=== PATIENT | male | born 1970 | race Caucasian/White ===

== ENCOUNTER → 2020-08-30 13:21 | Outpatient (BNVA) | payer OTHER, SELFPAY | PROVIDERS: PCP Physician Assistant; Referring Provider Physician Assistant; Visit Provider Nurse Practitioner | DX: R13.12 Dysphagia, oropharyngeal phase (principal); J30.2 Other seasonal allergic rhinitis; K21.9 Gastro-esophageal reflux disease without esophagitis | CPT/HCPCS: 99212 ==

== ENCOUNTER → 2020-12-04 08:38 | Outpatient (BNVA) | payer OTHER, SELFPAY | PROVIDERS: PCP Physician Assistant; Visit Provider Nurse Practitioner ==

== ENCOUNTER 2020-12-31 11:47 | Outpatient (REF) | payer OTHER, SELFPAY ==
--- NOTE | ~2020-12-31 | XR_ITS ---
EXAMINATION: XR CHEST CLINICAL INFORMATION: Cough COMPARISON: Chest radiographs 07/15/2019 TECHNIQUE: 2 views of the chest were obtained. FINDINGS: The lungs are clear. There is no airspace consolidation or groundglass opacity. The heart is normal in size. The vascularity is normal. The costophrenic sulci are clear. There is tapering right cardiophrenic angle with some mild convexity, more conspicuous on current exam. Most likely differential considerations include areolar tissue, pericardial cyst, or Morgagni hernia. The hilar contours are normal. Bony structures again show mild pectus excavatum and degenerative changes thoracic spine. XR/XR chest 2V IMPRESSION: 1. No airspace consolidation or groundglass opacity or effusion. 2. Convexity right cardiophrenic angle. Most common differential considerations include areolar tissue, pericardial cyst, or Morgagni hernia.
== END 2020-12-31 11:48 | disposition home or self-care (01) ==
LOC: HO.LNP 11:47
PROVIDERS: Visit Provider Physician Assistant
DX: R19.8 Other specified symptoms and signs involving the digestive system and abdomen (principal)
CPT/HCPCS: 71046; 87071; 87205

== ENCOUNTER 2021-01-01 08:22 | Outpatient (REF) | payer BC, OTHER, SELFPAY ==
[2021-01-01 09:48] LABS: Hematocrit 46.1 % (42-52); Hemoglobin 15.3 g/dl (14.0-18.0); Mean Corpuscular HGB Conc 33.2 g/dl (31.0-36.0); Mean Corpuscular Hemoglobin 29.7 pg (27.0-33.0); Mean Corpuscular Volume 89.3 fL (80-98); Mean Platelet Volume 11.6 fL (9.4-12.4); Platelet Count 198 X10*3/uL (160-400); Red Blood Count 5.16 X10*6/uL (4.60-5.80); Red Cell Distribution Width 12.9 % (11.0-16.0); White Blood Count 6.9 X10*3/uL (4.8-10.8)
[2021-01-01 10:13] LABS: Alanine Aminotransferase 11 U/L (0-40); Albumin Level 4.3 g/dL (3.5-5.0); Alkaline Phosphatase 65 U/L (39-117); Anion Gap 11 (12-20); Aspartate Amino Transferase 15 U/L (5-37); Bilirubin Total 1.2 mg/dL (0.0-1.0); Blood Urea Nitrogen 18 mg/dL (9-16); Carbon Dioxide 30 mmol/L (22-29); Chloride 103 mmol/L (96-108); Cholesterol 193 mg/dL; Estimated Glomerular Filt Rate > 60; Glucose Fasting 99 mg/dL (60-99); HDL Cholesterol 65 mg/dL; LDL Cholesterol Calculated 113 mg/dl; Potassium 4.5 mmol/L (3.3-5.1); Sodium 139 mmol/L (135-145); Total Protein 7.2 g/dL (6.5-8.0); Triglycerides 78 mg/dL
[2021-01-01 10:35] LABS: TSH reflex Free T4 2.76 uIU/mL (0.32-4.0)
[2021-01-02 10:27] LABS: Immunoglobulin E 236 kU/L (<OR=114)
== END 2021-01-01 08:23 | disposition home or self-care (01) ==
LOC: HO.LAB 08:22
PROVIDERS: PCP Physician Assistant; Visit Provider Physician Assistant
DX: I10 Essential (primary) hypertension (principal); E03.9 Hypothyroidism, unspecified; J30.2 Other seasonal allergic rhinitis; Z13.1 Encounter for screening for diabetes mellitus; Z13.220 Encounter for screening for lipoid disorders
CPT/HCPCS: 36415; 80053; 80061; 82785; 84443; 85027

== ENCOUNTER 2021-01-10 08:57 | Outpatient (REF) | payer BC, SELFPAY ==
--- NOTE | ~2021-01-10 | CT_ITS ---
EXAMINATION: CT CHEST WITHOUT CONTRAST CLINICAL INFORMATION: Congenital diaphragmatic hernia COMPARISON: Previous chest x-ray most recent 01/01/2021. Abdominal ultrasound November 2010 TECHNIQUE: Multidetector volumetric CT imaging of the chest was done. Axial MIP volume rendering provided. Sagittal and coronal reformatted images were obtained. This CT examination was performed using dose optimization techniques as appropriate, variously including the following: *Automated exposure control *Adjustment of mA and/or kV according to patient size (this includes techniques or standardized protocols for targeted exams where dose is matched to indication/reason for exam; i.e. extremities or head) *Use of iterative reconstruction technique DLP: 165 mGy-cm FINDINGS: LUNGS: There is a 2 mm right upper lobe nodule axial image 99 series 7. The lungs are clear with no evidence of inflammation or nodules. MEDIASTINUM: The thyroid gland has been removed. The mediastinum is normal. PLEURA: There is no pleural effusion. No pleural mass or thickening. No hernia is seen. AXILLA: No lymphadenopathy. UPPER ABDOMEN: There are multiple low-attenuation liver lesions probably representing small cysts. The largest measures 8 x 10 mm in the right lobe of the liver. There is question of a small low-attenuation lesion in the tail of the pancreas measuring 5 mm axial image 64 series 3. OSSEOUS STRUCTURES: Unremarkable. CT/CT chest wo con IMPRESSION: No diaphragmatic hernia is seen. Small 2 mm right upper lobe nodule. According to the UPDATED 2017 Fleischner Society recommendations, the advised follow-up imaging for less than 6 mm nodule: Low risk, no chest CT follow-up needed and high risk, optional chest CT follow-up in one year. Innumerable small low-attenuation liver lesions probably representing cysts. Small 5 mm low-attenuation lesion in the tail of the pancreas
== END 2021-01-10 08:58 | disposition home or self-care (01) ==
LOC: HO.CT 08:57
PROVIDERS: Visit Provider Physician Assistant
DX: Q79.0 Congenital diaphragmatic hernia (principal)
CPT/HCPCS: 71250

== ENCOUNTER → 2021-02-03 07:59 | Outpatient (BNVA) | payer BC, SELFPAY | PROVIDERS: PCP Physician Assistant; Visit Provider Internal Medicine Gastroenterology ==

== ENCOUNTER 2021-02-13 10:54 | Outpatient (REF) | payer BC, SELFPAY ==
--- NOTE | ~2021-02-13 | MR_ITS ---
EXAMINATION: MR ABDOMEN WITHOUT AND WITH CONTRAST CLINICAL INFORMATION: Follow-up innumerable small low-attenuation liver lesions and question lesion in the tail of the pancreas COMPARISON: Previous chest CT December 2020 and abdominal ultrasound November 2010 TECHNIQUE: MR abdomen was performed without and with use of 7.5 mL intravenous Gadavist gadolinium contrast. Postcontrast images are performed in multiphase dynamic sequences. Imaging was performed in 3 planes. MRCP sequences were also performed. FINDINGS: LUNG BASES: The visualized lung bases are unremarkable. LIVER, GALLBLADDER, AND BILIARY TREE: The liver is normal in size, shape and attenuation. There are innumerable small low in T1 and bright on T2-weighted sequences lesions seen throughout the liver. These do not demonstrate evidence of enhancement and are compatible with small cysts or biliary hamartomas/von Meyenburg complexes. The largest measures 8 x 10 mm in the anterior segment of the right lobe of the liver. No other focal liver lesion is seen. The gallbladder is normal appearing. Intrahepatic and extrahepatic bile ducts are normal in caliber. PANCREAS: There is a small lesion seen in the tail of the pancreas. This is low signal on T1-weighted sequences, high signal on T2-weighted sequences and does not demonstrate evidence of enhancement. This probably represents a small cyst. This measures approximately 4 mm, for example axial image 30 series 100, post contrast. The pancreas is otherwise normal. The main pancreatic duct is normal. SPLEEN: Normal. ADRENAL GLANDS: Normal. KIDNEYS AND URETERS: The kidneys are normal in size, shape, and enhance symmetrically. No hydronephrosis. No perinephric stranding. GASTROINTESTINAL TRACT: No bowel obstruction. No ascites or fluid collection. ABDOMINAL WALL: No significant hernia is appreciated. LYMPH NODES: No lymphadenopathy. VASCULAR: Unremarkable. OSSEOUS STRUCTURES: Marrow signal normal. There is degenerative disc disease of the spine. MR/MR abdomen wo/w con IMPRESSION: Innumerable small liver cysts or biliary hamartomas/von Meyenburg complexes. Small 4 mm cyst in the tail of the pancreas.
== END 2021-02-13 10:55 | disposition home or self-care (01) ==
LOC: HO.MRI 10:54
PROVIDERS: Visit Provider Internal Medicine Gastroenterology
DX: R93.5 Abnormal findings on diagnostic imaging of other abdominal regions, including retroperitoneum (principal)
CPT/HCPCS: 74183; A9585

== ENCOUNTER 2022-02-16 08:30 | Outpatient (REF) | payer OTHER, SELFPAY ==
[2022-02-16 11:09] LABS: Hematocrit 42.4 % (42.0-52.0); Hemoglobin 14.1 g/dl (14.0-18.0); Mean Corpuscular HGB Conc 33.3 g/dl (31.0-36.0); Mean Corpuscular Hemoglobin 29.7 pg (27.0-33.0); Mean Corpuscular Volume 89.3 fL (80.0-98.0); Mean Platelet Volume 12.4 fL (9.4-12.4); Platelet Count 201 X10*3/uL (160-400); Red Blood Count 4.75 X10*6/uL (4.60-5.80); Red Cell Distribution Width 12.7 % (11.0-16.0); White Blood Count 6.6 X10*3/uL (4.8-10.8)
[2022-02-16 11:18] LABS: Alanine Aminotransferase 19 U/L (0-40); Albumin Level 3.9 g/dL (3.5-5.0); Alkaline Phosphatase 57 U/L (39-117); Anion Gap 11 (12-20); Aspartate Amino Transferase 20 U/L (5-37); Bilirubin Total 0.7 mg/dL (0.0-1.0); Blood Urea Nitrogen 22 mg/dL (9-16); Calcium 9.3 mg/dL (8.4-10.2); Carbon Dioxide 27 mmol/L (22-29); Chloride 106 mmol/L (96-108); Cholesterol 189 mg/dL; Estimated Glomerular Filt Rate > 60; Glucose Fasting 103 mg/dL (60-99); HDL Cholesterol 63 mg/dL; LDL Cholesterol Calculated 113 mg/dl; Potassium 4.6 mmol/L (3.3-5.1); Sodium 139 mmol/L (135-145); Total Protein 6.8 g/dL (6.5-8.0); Triglycerides 67 mg/dL
[2022-02-16 11:20] LABS: Estimated Average Glucose 103 mg/dL; Hemoglobin A1c % 5.2 %
[2022-02-16 11:40] LABS: TSH reflex Free T4 2.06 uIU/mL (0.32-4.0)
[2022-02-18 04:52] LABS: Lyme Abs Screen <0.90 index
== END 2022-02-16 08:31 | disposition home or self-care (01) ==
LOC: HO.10HDL 08:30
PROVIDERS: Visit Provider Physician Assistant
DX: Z13.1 Encounter for screening for diabetes mellitus (principal); Z13.220 Encounter for screening for lipoid disorders; E03.9 Hypothyroidism, unspecified; T14.8XXA Other injury of unspecified body region, initial encounter; W57.XXXA Bitten or stung by nonvenomous insect and other nonvenomous arthropods, initial encounter
CPT/HCPCS: 36415; 80053; 80061; 83036; 84443; 85027; 86617; 86618

== ENCOUNTER 2023-01-20 09:25 | Outpatient (REF) | payer OTHER, SELFPAY ==
[2023-01-20 10:47] LABS: Hematocrit 44.5 % (42.0-52.0); Hemoglobin 14.8 g/dl (14.0-18.0); Mean Corpuscular HGB Conc 33.3 g/dl (31.0-36.0); Mean Corpuscular Hemoglobin 29.3 pg (27.0-33.0); Mean Corpuscular Volume 88.1 fL (80.0-98.0); Mean Platelet Volume 12.1 fL (9.4-12.4); Platelet Count 209 X10*3/uL (160-400); Red Blood Count 5.05 X10*6/uL (4.60-5.80); Red Cell Distribution Width 12.9 % (11.0-16.0); White Blood Count 6.3 X10*3/uL (4.8-10.8)
[2023-01-20 11:31] LABS: Alanine Aminotransferase 11 U/L (0-40); Albumin Level 4.2 g/dL (3.5-5.0); Alkaline Phosphatase 62 U/L (39-117); Anion Gap 11 (12-20); Aspartate Amino Transferase 18 U/L (5-37); Bilirubin Total 1.1 mg/dL (0.0-1.0); Blood Urea Nitrogen 18 mg/dL (9-16); Calcium 9.3 mg/dL (8.4-10.2); Carbon Dioxide 28 mmol/L (22-29); Chloride 106 mmol/L (96-108); Cholesterol 209 mg/dL; Estimated Glomerular Filt Rate > 60; Glucose Fasting 89 mg/dL (60-99); HDL Cholesterol 68 mg/dL; LDL Cholesterol Calculated 124 mg/dl; Potassium 4.7 mmol/L (3.3-5.1); Sodium 140 mmol/L (135-145); Total Protein 6.9 g/dL (6.5-8.0); Triglycerides 88 mg/dL
[2023-01-20 11:52] LABS: Prostate Specific Antigen Scr 1.58 ng/mL (<0.05-4.0); TSH reflex Free T4 4.34 uIU/mL (0.32-4.0)
[2023-01-20 14:00] LABS: Free T4 (Free Thyroxine) 1.13 ng/dL (0.71-1.85)
== END 2023-01-20 09:26 | disposition home or self-care (01) ==
LOC: HO.LAB 09:25
PROVIDERS: PCP Physician Assistant; Visit Provider Physician Assistant
DX: Z13.220 Encounter for screening for lipoid disorders (principal); Z13.1 Encounter for screening for diabetes mellitus; Z12.5 Encounter for screening for malignant neoplasm of prostate; E03.9 Hypothyroidism, unspecified
CPT/HCPCS: 36415; 80053; 80061; 84153; 84439; 84443; 85027

== ENCOUNTER 2023-04-18 16:30 | Emergency (ER) | payer OTHER, SELFPAY ==
--- NOTE | ~2023-04-18 | XR_ITS ---
EXAMINATION: XR FOREARM, LEFT CLINICAL INFORMATION: Laceration, question osseous involvement COMPARISON: None available. TECHNIQUE: AP and lateral views of the left forearm were obtained. FINDINGS: No evidence for bony violation. Soft tissue defect is noted in the forearm ventrally. No convincing evidence for radiopaque foreign body in the region. Some stippled densities more proximally along the radial aspect and about the elbow toward the ulnar aspect XR/XR forearm LT 2V IMPRESSION: No evidence for bony violation. Some small foreign bodies are seen more proximally Away from the soft tissue defect
[2023-04-18 18:16] VITALS: BP 157/78; PULSE 59; RESP 19; TEMP 36.8; O2SAT 98; BMI 21.6
[2023-04-18] MEDS: Lidocaine HCl 1%/Epi 1:100,000 10 ML VIAL INFILTRATI (20:19)
--- NOTE | 2023-04-18 21:01 | ED_ITS ---
HPI - Wound/Laceration General Chief Complaint: Wound/Laceration Stated Complaint: Left arm injury cut with saw Time Seen by Provider: 04/18/23 20:03 Source: patient and RN notes reviewed Mode of arrival: ambulatory Limitations: no limitations History of Present Illness HPI narrative: 53-year-old male presents for evaluation of a left forearm laceration. He reports he was cutting concrete with ?a donell tipped saw. ? He reports that he was stretching to kick something off the ground and slipped and accidentally cut his forearm His tetanus is up-to-date as of 2 years ago He complains of mild, 4/10 pain. Bleeding controlled Related Data Previous Rx's Medication Instructions Recorded ibuprofen 800 mg tablet 800 mg PO Q8H #90 tabs 02/23/23 levothyroxine 150 mcg tablet 150 mcg PO DAILY 90 days #90 tabs 02/25/23 cephalexin 500 mg capsule 500 mg PO QID #20 caps 04/18/23 Allergies Allergy/AdvReac Type Severity Reaction Status Date / Time SEASONAL ALLERGIES Allergy Mild RUNNY Uncoded 01/25/23 07:48 NOSE, ITCHY EYES Review of Systems Integumentary/Breasts: Skin/Breast: Reports wounds Comments: Laceration to left forearm PMFSH Past Medical History Surgical History H/O esophagogastroduodenoscopy Hx of colonoscopy Family History Family History Father Depression Stroke Mother Pneumonia Social History Social History Household Members: None Housing: House Alcohol intake: current Alcohol intake frequency: a few times a week Alcohol type: beer Patient Tobacco Use Status: Never used Tobacco e-Cigarette/Vaping Use: Never Used Second Hand Smoke Exposure: No Advance Directives: No Advance Directives Information Provided: No service: No Current occupational status: employed 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 Current occupational exposures/hazards: No Cognitive needs: No Hearing needs: No Vision needs: No Physical Exam Vital Signs: Vital Signs: Last Vital Signs Temp 98.3 F 04/18/23 18:16 Pulse 59 04/18/23 18:16 Resp 19 06/25/23 18:16 BP 157/78 H 06/25/23 18:16 Pulse Ox 98 04/18/23 18:16 O2 Del Method Room Air 04/18/23 18:16 BMI result Body Mass Index 21.6 Const: General: healthy appearing, comfortable, no acute distress, alert and awake Nutritional Appearance: well nourished Orientation/consciousness: patient oriented x3 HEENT: Head: Yes normocephalic and Yes atraumatic Eyes: Eyelids: Yes eyelids normal Conjunctivae: conjunctivae normal Sclerae: sclerae normal Corneas: corneas normal Pupils: Equal, round and reactive pupils present EOM: EOMs intact bilaterally Neck: Neck: Yes full ROM Resp: Effort & Inspection: normal respiratory effort, able to speak in complete sentences and not labored Skin: Other: Patient has an approximately 10 cm linear laceration to the ventral surface of left forearm. There is fascia visible. There is also a portion of muscle visible. There appears to be a small partial-thickness laceration to a muscle in the left ventral forearm. The patient is able to flex his wrist to 90? without any difficulty. He was able to individually flex each finger completely and independently. General skin exam: no rashes or lesions noted and elasticity normal Neuro: General: patient oriented x3 Cranial nerves: Yes CN's II-XII intact bilaterally, Yes Equal, round and reactive pupils present and Yes Bilaterally intact EOM present Cognition (Neuro): normal cognition Medications Administered Discontinued Medications Generic Name Dose Route Start Last Admin Trade Name Freq PRN Reason Stop Dose Admin Lidocaine/Epinephrine 10 ml 04/18/23 20:06 04/18/23 20:19 Lidocaine Hcl 1%/Epi 1:100,000 10 Ml Vial INFILTRATI 04/18/23 20:07 10 ml ONCE ONE Administration Medical Decision Making Medical Decision Making [facility] Narrative: Patient a large laceration, x-ray negative for radiopaque foreign body or bony injury. Patient appear to have a very insignificant muscle involvement. He is able to flex each muscle of the left upper extremity independently. Fascial layer was closed with 5 0 Vicryl. I advised the patient not to lift anything over 10 lb for least next 2 weeks. He will be given antibiotic prophylaxis given the muscular involvement. He will also be referred to Orthopedics. Patient is instructed return in 10 days for skin layer suture removal. Of note, there was no evidence of nerve or vascular injury Differential Diagnosis Laceration Skin tear Muscular injury And laceration Independent Interpretation I performed an independent interpretation of an: Plain X-Ray (Soft tissue laceration noted, no obvious radiopaque foreign body or fracture) Procedures Laceration Laceration 1: Site: upper extremity Side (If applicable): left (Left forearm) Size (cm): 10 Description: linear Depth: simple, single layer and involves muscle layer Local Anesthetic: lidocaine 1% and with epi Amount of anesthesia used (mL): 8 Pre-repair: wound explored, irrigated extensively and deep structures intact Skin layer closed with: nylon Size (cm): 4-0 Number of sutures: 10 Technique: simple, interrupted Subcutaneous layer closed with: vicryl Size: 5-0 Number of sutures: 5 Technique: simple, interrupted Discharge Plan Discharge Clinical Impression: Laceration of forearm, left Patient Disposition: Home, Self-Care Instructions: Laceration (ED) Additional Instructions: You had 5 sutures placed that are dissolvable within the wound. You had 10 skin sutures placed an EJ removed in 10 days You appear to have a very small laceration to a flexor muscle. Avoid lifting over 10 lb for the next 2 weeks Take cephalexin for time daily for the next 5 days to prevent infection Follow-up with Orthopedics, Dr. Grossman at the number provided. Call tomorrow to make an appoint Prescriptions: New cephalexin 500 mg capsule 500 mg PO QID Qty: 20 0RF No Action ibuprofen 800 mg tablet 800 mg PO Q8H Qty: 90 1RF levothyroxine 150 mcg tablet 150 mcg PO DAILY 90 Days Qty: 90 3RF
[2023-04-18 21:19] VITALS: BP 147/78; PULSE 60; RESP 16; O2SAT 98
== END 2023-04-18 21:20 | disposition home or self-care (01) ==
PROVIDERS: Emergency Provider Internal Medicine; PCP Physician Assistant
DX: S51.812A Laceration without foreign body of left forearm, initial encounter (principal); M79.602 Pain in left arm; W45.8XXA Other foreign body or object entering through skin, initial encounter; Y93.9 Activity, unspecified; Y92.9 Unspecified place or not applicable; Y99.9 Unspecified external cause status
CPT/HCPCS: 12034; 73090; 99283

== ENCOUNTER 2023-05-11 10:55 | Outpatient (REF) | payer OTHER, SELFPAY ==
[2023-05-11 13:10] LABS: Hemoglobin 14.9 g/dl (14.0-18.0); Mean Corpuscular HGB Conc 33.9 g/dl (31.0-36.0); Mean Corpuscular Hemoglobin 29.6 pg (27.0-33.0); Mean Corpuscular Volume 87.3 fL (80.0-98.0); Mean Platelet Volume 12.4 fL (9.4-12.4); Platelet Count 202 X10*3/uL (160-400); Red Blood Count 5.04 X10*6/uL (4.60-5.80); Red Cell Distribution Width 12.6 % (11.0-16.0); White Blood Count 5.3 X10*3/uL (4.8-10.8)
[2023-05-11 18:27] LABS: TSH reflex Free T4 0.49 uIU/mL (0.32-4.0)
== END 2023-05-11 10:56 | disposition home or self-care (01) ==
LOC: HO.10HDL 10:55
PROVIDERS: Visit Provider Physician Assistant
DX: E03.9 Hypothyroidism, unspecified (principal); R19.8 Other specified symptoms and signs involving the digestive system and abdomen
CPT/HCPCS: 36415; 84443; 85027

== ENCOUNTER → 2024-02-11 15:27 | Outpatient (BNVA) | payer SELFPAY | PROVIDERS: PCP Physician Assistant; Visit Provider Physician Assistant | DX: Z02.79 Encounter for issue of other medical certificate (principal) ==

== ENCOUNTER 2025-03-15 09:02 | Outpatient (AMB) | payer OTHER, SELFPAY ==
--- NOTE | 2025-03-15 09:06 | A.OFFPC_ITS ---
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 Patient has a past medical history significant for hypothyroidism secondary to a total thyroidectomy, history of or pharyngeal reflux Concern--> Walter expressed concerns about experiencing age-related memory changes, such as brief lapses in focus and attention, which have become more noticeable recently. He reported instances where he needed to concentrate more on routine tasks, often misplacing items such as tools, indicative of cognitive overload. 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 He denied using any medications for cognitive enhancement until this visit but is interested in expl oring potential remedies. .. Hypothyroidism:? Continues on levothyroxine 125 mcg with good effect.? Has been chemically in clinically euthyroid. Most recent TSH slightly elevated .. . Vaccines:? Up-to-date with COVID vaccine, up-to-date with tetanus vaccine. Considering Shingrex. 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 1. Little interest or pleasure in doing things: more than half the days 2. Feeling down, depressed, or hopeless: more than half the days 3. Trouble falling or staying asleep, or sleeping too much: more than half the days 4. Feeling tired or having little energy: more than half the days 5. Poor appetite or overeating: more than half the days 6. Feeling bad about yourself - or that you are a failure or have let yourself or your family down: more than half the days 7. Trouble concentrating on things, such as reading the newspaper or watching television: more than half the days 8. Moving or speaking so slowly that other people could have noticed. Or the opposite - being so fidgety or restless that you have been moving around a lot more than usual: more than half the days 9. Thoughts that you would be better off or of hurting yourself in some way: more than half the days Total score: 18 Depression Screening Interpretation: Positive Depression Screening Follow-up: Existing condition Depression Screening Done: Yes 13289 - PHQ-9 Billing: Yes Source: Developed by Drs. Daniel Salgado, Brandi Sheffield, Hayden Jiménez and colleagues, with an educational jose from [employer]. Thrive Questionnaire Date Thrive assessed: 03/15/25 I am a: Patient What is your living situation today?: I do not have a steady places to live I am staying at a jail Within the past 12 months, did the food you bought not last and you didn't have the money to get more?: Never true Within the past 12 months, did you worry whether your food would run out before you got money to buy more?: Never true Do you have trouble paying for medicines?: I choose not to answer this question Do you have trouble getting transportation to medical appointments?: No Do you have trouble paying your heating and electricity bill?: I choose not to answer this question Do you have trouble taking care of your child, family member or friend?: I choose not to answer this question Do you have trouble with day-to-day activities such as bathing, preparing meals, shopping, managing finances, etc.?: I choose not to answer this question Are you currently unemployed and looking for a job?: I choose not to answer this question Are you interested in more education?: I choose not to answer this question Please select the resources that you would like help with: None Currently or been in a relationship where the following occur: No concerns reported THRIVE Score: 1 AUDIT C Alcohol Use Questionnaire (AUDIT-C) 1. How often do you have a drink containing alcohol?: 4 or more times a week 2. How many drinks containing alcohol do you have on a typical day when you are drinking?: 10 or more 3. How often do you have six or more drinks on one occasion?: Daily or almost daily Total Score: 12 RUTH-7 AMB Questionnaire RUTH-7 Date RUTH - 7 assessed: 03/15/25 Feeling nervous, anxious, or on edge: 2 = More than half the days Not being able to stop or control worryin = More than half the days Worrying too much about different things: 2 = More than half the days Trouble relaxin = More than half the days Being so restless that it is hard to sit still: 2 = More than half the days Becoming easily annoyed or irritable: 2 = More than half the days Feeling afraid as if something awful might happen: 2 = More than half the days Total RUTH-7 score (0-4 normal; 5-9 mild; 10-14 moderate; 15-21 severe): 14 Source: Developed by Drs. Daniel Salgado, Brandi Sheffield, Hayden Jiménez and colleagues, with an educational jose from [employer]. RUTH-7 Assessment Billing RUTH-7 Assessment Tool: RUTH-7 Assessment 44830 Review of Systems Const Denies body aches, Denies chills, Denies excessive sweating, Denies fatigue, Denies fever(s) and Denies headache(s) Eyes Denies blurry vision ENT Denies dysphagia, Denies vertigo, Denies dizziness, Denies headache(s), Denies hearing loss and Denies tinnitus Card Denies chest pain, Denies chest pain with activity, Denies syncope, Denies irregular heart rhythm and Denies dyspnea Resp Denies chest congestion, Denies cough, Denies hemoptysis, Denies dyspnea and Denies wheezing GI Denies abdominal pain, Denies melena, Denies hematochezia, Denies coffee ground emesis, Denies dysphagia, Denies diarrhea, Denies nausea and Denies vomiting Denies difficulty urinating, Denies dysuria, Denies urinary frequency, Denies urinary hesitancy and Denies urinary urgency Musc Denies arthralgias, Denies limited range of motion, Denies muscle cramps and Denies muscle weakness Skin/Breast Denies rash and Denies skin ulcer Neuro Denies Abnormal speech present, Denies confusion, Denies vertigo, Denies dizziness, Denies syncope, Denies headache(s), Denies memory loss and Denies seizure-like activity Psych Denies anxiety, Denies confusion, Denies depression, Denies memory loss, Denies panic attacks and Denies paranoia Endo Denies excessive sweating, Denies fatigue, Denies flushing, Denies polydipsia and Denies polyuria Aller/Immun Denies wheezing Physical exam (Primary Care) Vital Signs: Last Vital Signs Temp 97.0 F 03/15/25 09:10 Pulse 55 03/15/25 09:10 BP 118/78 03/15/25 09:10 Pulse Ox 98 03/15/25 09:10 Oxygen Delivery Method Room Air 03/15/25 09:10 BMI result Body Mass Index 22.9 Tobacco/Smoking Status: Tobacco use Status Tobacco use date assessed 03/15/25 03/15/25 09:16 Patient Tobacco Use Status Never used Tobacco 03/15/25 09:25 e-Cigarette/Vaping Use Never Used 03/15/25 09:25 PHQ-9: PHQ-9 Score PHQ-9: Total score 18 03/15/25 09:41 Depression Screening Interpretation: Positive Depression Screening Follow-up: Existing condition Thrive Assessment: Date of Thrive Assessment Date Thrive assessed 03/15/25 03/15/25 09:11 Currently or been in a relationship where the following occur: No concerns reported Const General: cooperative, comfortable, no acute distress, alert and awake; No confusion Orientation/consciousness: oriented to person, oriented to place, patient oriented x3 and No confusion HENMT Head: Yes normocephalic Ears: external ears normal and TM's normal bilaterally Face and sinus: No sinus tenderness Mouth: Normal oral and palatal mucosa present and tongue normal Teeth and gingiva: dentition normal and gingiva normal Throat: Yes posterior oropharynx normal, Yes tonsils normal and Yes uvula midline Eyes Conjunctivae: conjunctivae normal Sclerae: sclerae normal Pupils: Equal, round and reactive pupils present EOM: EOMs intact bilaterally Direct Ophthalmoscopy: No no photophobia Neck Neck: Yes no lymphadenopathy, No tender and Yes no JVD Thyroid: Thyroid normal Carotids: no bruits Chest Chest palpation & inspection: no tenderness Resp Effort & Inspection: normal respiratory effort, no audible wheezes, not labored and no stridor Auscultation: no crackles, no rales, no rhonchi and no wheezes Cardio Jugular venous distension: no JVD Rate: regular rate, not bradycardic and not tachycardic Rhythm: regular rhythm Bruits: no carotid bruits Peripheral pulses: Peripheral pulses 2+ throughout GI Inspection: Yes normal to inspection, No abdominal wall ecchymosis and No visible herniation Palpation (GI): Soft to palpation, nontender, no guarding, not rigid and No hepatosplenomegaly present Auscultation: normoactive bowel sounds General: Yes no CVA tenderness Back/Spine/Pelvis Back: no CVA tenderness and No back tenderness Cervical Spine: cervical ROM normal Thoracic/Lumbar Spine: thoracic and lumbar spine normal to inspection, straight leg raise negative bilaterally, No thoraco-lumbar ROM limited and No lumbar spinal tenderness Skin Lesions: no lesions Rashes: no rashes Wounds: no wounds Neuro General: oriented to person, oriented to place, patient oriented x3, CN's II-XI intact bilaterally and No confusion Cranial nerves: Yes Equal, round and reactive pupils present and Yes Normal accommodation reflex present Cognition (Neuro): normal cognition Speech: No Abnormal speech present Gait exam (Neuro): Normal gait present Motor exam (neuro): 5/5 motor strength present throughout Extrem Right upper extremity: full ROM; no cyanosis Left upper extremity: full ROM; no cyanosis Right lower extremity: no edema Left lower extremity: no edema Psych Appearance: grossly normal Mental Status: mental status grossly normal Affect: normal affect Attitude: cooperative Thought process: Normal thought process present Coding Level of Care Code Est Pt Prev Care 40-64y(24699) Diagnoses Annual physical exam Z00.00 Hypothyroidism, unspecified type E03.9 Hypothyroidism type: unspecified Screening for diabetes mellitus (DM) Z13.1 Attention or concentration deficit R41.840 Attention deficit type: attention or concentration deficit RUTH (generalized anxiety disorder) F41.1 Additional Codes RUTH-7 Assessment Billing - RUTH-7 Assessment Tool: RUTH-7 Assessment 17780 ([id number]) PHQ-9 - 38743 - PHQ-9 Billing: Yes ([id number]) Assessment & Plan Assessment & Plan (1) Annual physical exam: Code(s): Z00.00 - Encounter for general adult medical examination without abnormal findings Category: Medical Plan: As per HPI (2) Hypothyroidism: Code(s): E03.9 - Hypothyroidism, unspecified Category: Medical Qualifiers: Hypothyroidism type: unspecified Qualified Code(s): E03.9 - Hypothyroidism, unspecified Plan: Patient has a history of a total thyroidectomy. Continues on 125 mcg of levothyroxine with good effect. Will continue to follow TSH to assure normal. (3) Screening for diabetes mellitus (DM): Code(s): Z13.1 - Encounter for screening for diabetes mellitus Category: Medical Plan: As per HPI (4) ADD (attention deficit disorder): Code(s): F98.8 - Other specified behavioral and emotional disorders with onset usually occurring in childhood and adolescence Category: Medical Qualifiers: Attention deficit type: attention or concentration deficit Qualified Code(s): R41.840 - Attention and concentration deficit Plan: Initiated trial of Strattera at 60 mg for one month to manage cognitive issues, assess response and side effects. A follow-up is scheduled to consider dose adjustments. (5) RUTH (generalized anxiety disorder): Code(s): F41.1 - Generalized anxiety disorder Category: Medical Plan: Patient's RUTH-7 score positive for anxiety which he attributes to stress related to his employment. He is not interested in anxiety medication or mental health therapy at this time. He is interested in trying to help his memory and focus as above. Orders: Orders Complete Blood Count Auto Diff Today K21.9 - Gastro-esophageal reflux disease without esophagitis TSH reflex Free T4 Today E03.9 - Hypothyroidism, unspecified Prostate Specific Antigen Scr Today E03.9 - Hypothyroidism, unspecified, Z12.5 - Encounter for screening for malignant neoplasm of prostate Comprehensive [place]. Panel Fast Today Z13.1 - Encounter for screening for diabetes mellitus Medications: New atomoxetine (Strattera) 60 mg PO DAILY 30 caps 1RF 30 days R41.840 - Attention and concentration deficit Refilled levothyroxine 150 mcg PO DAILY 90 tabs 1RF 90 days E03.9 - Hypothyroidism, unspecified ibuprofen 800 mg PO Q8H 90 tabs 1RF E03.9 - Hypothyroidism, unspecified, M25.50 - Pain in unspecified joint
[2025-03-15 09:10] VITALS: BP 118/78; PULSE 55; TEMP 36.1; O2SAT 98; BMI 22.9
== END 2025-03-15 14:31 | disposition home or self-care (01) ==
LOC: HO.HMCH 09:03
PROVIDERS: PCP Physician Assistant; Visit Provider Physician Assistant
DX: Z00.00 Encounter for general adult medical examination without abnormal findings (principal); E03.9 Hypothyroidism, unspecified; Z13.1 Encounter for screening for diabetes mellitus; R41.840 Attention and concentration deficit; F41.1 Generalized anxiety disorder

== ENCOUNTER → 2025-03-15 09:02 | Outpatient (BNVA) | payer OTHER, SELFPAY | PROVIDERS: PCP Physician Assistant; Visit Provider Physician Assistant | DX: Z00.00 Encounter for general adult medical examination without abnormal findings (principal); E89.0 Postprocedural hypothyroidism; R41.840 Attention and concentration deficit; F41.1 Generalized anxiety disorder | CPT/HCPCS: 96127; 99396 ==

== ENCOUNTER 2025-04-04 08:04 | Outpatient (REF) | payer OTHER, SELFPAY ==
[2025-04-04 08:22] LABS: MANUAL DIFF FLAG NO
[2025-04-04 09:25] LABS: Basophils Absolute Auto 0.1 X10*3/uL (0.0-0.2); Basophils Percent Auto 0.8 % (0-2); Eosinophils Absolute Auto 0.1 X10*3/uL (0.0-0.4); Eosinophils Percent Auto 2.3 % (0-4); Hematocrit 42.7 % (42.0-52.0); Hemoglobin 14.6 g/dl (14.0-18.0); Imm Gran Abs Auto 0.02 X10*3/uL (0.00-0.03); Imm Gran Pct Auto 0.3 % (0.0-0.4); Lymphocytes Absolute Auto 2.1 X10*3/uL (1.2-4.9); Lymphocytes Percent Auto 35.7 % (20-40); Mean Corpuscular HGB Conc 34.2 g/dl (31.0-36.0); Mean Corpuscular Hemoglobin 29.5 pg (27.0-33.0); Mean Corpuscular Volume 86.3 fL (80.0-98.0); Mean Platelet Volume 11.9 fL (9.4-12.4); Monocytes Absolute Auto 0.7 X10*3/uL (0.1-1.2); Monocytes Percent Auto 11.2 % (2-11); Neutrophils Percent Auto 49.7 % (45-73); Platelet Count 199 X10*3/uL (160-400); Red Blood Count 4.95 X10*6/uL (4.60-5.80); Red Cell Distribution Width 12.8 % (11.0-16.0)
[2025-04-04 09:54] LABS: Alanine Aminotransferase 15 U/L (0-40); Albumin Level 4.1 g/dL (3.5-5.0); Alkaline Phosphatase 60 U/L (39-117); Anion Gap 7 (12-20); Aspartate Amino Transferase 20 U/L (5-37); Bilirubin Total 0.9 mg/dL (0.0-1.0); Blood Urea Nitrogen 17 mg/dL (9-16); Carbon Dioxide 30 mmol/L (22-29); Chloride 107 mmol/L (96-108); Estimated Glomerular Filt Rate > 60; Glucose Fasting 93 mg/dL (60-99); Sodium 140 mmol/L (135-145); Total Protein 6.7 g/dL (6.5-8.0)
[2025-04-04 10:15] LABS: TSH reflex Free T4 0.24 uIU/mL (0.32-4.0)
[2025-04-04 11:04] LABS: Free T4 (Free Thyroxine) 1.24 ng/dL (0.71-1.85)
== END 2025-04-04 08:05 | disposition home or self-care (01) ==
LOC: HO.LAB 08:04
PROVIDERS: PCP Physician Assistant; Visit Provider Physician Assistant
DX: K21.9 Gastro-esophageal reflux disease without esophagitis (principal); E03.9 Hypothyroidism, unspecified; Z12.5 Encounter for screening for malignant neoplasm of prostate; Z13.1 Encounter for screening for diabetes mellitus
CPT/HCPCS: 36415; 80053; 84153; 84439; 84443; 85025

== ENCOUNTER 2025-04-16 13:55 | Outpatient (AMB) | payer OTHER, SELFPAY ==
[2025-04-16 14:07] VITALS: BP 130/70; PULSE 63; TEMP 36.3; O2SAT 97; BMI 22.6
--- NOTE | 2025-04-16 14:07 | A.OFFPC_ITS ---
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 The patient has been on medication for Attention Deficit Disorder (ADD) but reported losing the medication and not taking it as prescribed. A new prescription for Strattera was discussed to address memory and focus issues. Regarding hypothyroidism, the patient noted a change in the form of the medication due to a recall, switching from an oval to a round pill. The patient's recent TSH level was 0.24, indicating a slightly low level, suggesting an excess of thyroxine. The plan is to skip the medication every Wednesday for six weeks before retesting the TSH level. The patient reported a tick bite three weeks ago, which resulted in a noticeable lesion. A single-dose antibiotic was administered, and Lyme disease testing was planned for six weeks post-bite to ensure no infection. 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 Current occupational exposures/hazards: No Cognitive needs: No Hearing needs: No Vision needs: No Questionnaire Thrive Questionnaire Date Thrive assessed: 03/15/25 I am a: Patient What is your living situation today?: I do not have a steady places to live I am staying at a halfway Within the past 12 months, did the food you bought not last and you didn't have the money to get more?: Never true Within the past 12 months, did you worry whether your food would run out before you got money to buy more?: Never true Do you have trouble paying for medicines?: I choose not to answer this question Do you have trouble getting transportation to medical appointments?: No Do you have trouble paying your heating and electricity bill?: I choose not to answer this question Do you have trouble taking care of your child, family member or friend?: I choose not to answer this question Do you have trouble with day-to-day activities such as bathing, preparing meals, shopping, managing finances, etc.?: I choose not to answer this question Are you currently unemployed and looking for a job?: I choose not to answer this question Are you interested in more education?: I choose not to answer this question Please select the resources that you would like help with: None Currently or been in a relationship where the following occur: No concerns reported THRIVE Score: 1 RUTH-7 AMB Questionnaire RUTH-7 Date RUTH - 7 assessed: 03/15/25 Source: Developed by Drs. Daniel Salgado, Brandi Sheffield, Hayden Jiménez and colleagues, with an educational jose from [employer]. Review of Systems Const Denies headache(s) Eyes Denies loss of vision ENT Denies vertigo, Denies dizziness, Denies headache(s) and Denies sore throat Card Denies chest pain, Denies leg edema and Denies lightheadedness Resp Denies cough, Denies hemoptysis and Denies wheezing GI Denies abdominal pain, Denies melena, Denies constipation, Denies diarrhea and Denies vomiting Denies dysuria, Denies urinary frequency and Denies urinary urgency Musc Denies arthralgias, Denies joint swelling, Denies numbness and Denies tingling Neuro Denies Abnormal speech present, Denies behavioral changes, Denies vertigo, Denies dizziness, Denies headache(s), Denies loss of vision, Denies memory loss, Denies numbness and Denies tingling Psych Denies anxiety, Denies behavioral changes, Denies depression, Denies memory loss and Denies panic attacks Graham/Lymph Denies easy bleeding and Denies easy bruising Aller/Immun Denies wheezing Physical exam (Primary Care) Vital Signs: Last Vital Signs Temp 97.3 F 04/16/25 14:07 Pulse 63 04/16/25 14:07 BP 130/70 04/16/25 14:07 Pulse Ox 97 04/16/25 14:07 Oxygen Delivery Method Room Air 04/16/25 14:07 BMI result Body Mass Index 22.6 Tobacco/Smoking Status: Tobacco use Status Tobacco use date assessed 03/15/25 04/16/25 14:07 Patient Tobacco Use Status Never used Tobacco 04/16/25 14:07 e-Cigarette/Vaping Use Never Used 04/16/25 14:07 Thrive Assessment: Date of Thrive Assessment Date Thrive assessed 03/15/25 04/16/25 14:07 Currently or been in a relationship where the following occur: No concerns reported Const General: healthy appearing, no acute distress, alert and awake Nutritional Appearance: well nourished Orientation/consciousness: oriented to person, oriented to place and oriented to time HENMT Ears: TM's normal bilaterally General nose exam: Normal nasal mucous membranes and turbinates present Eyes Conjunctivae: conjunctivae normal Sclerae: sclerae normal Pupils: Equal, round and reactive pupils present Neck Neck: Yes no lymphadenopathy and Yes no JVD Thyroid: Thyroid normal Carotids: no bruits Resp Effort & Inspection: normal respiratory effort and not tachypneic Auscultation: no crackles, no rales, no rhonchi and no wheezes Cardio Rate: regular rate Rhythm: regular rhythm Heart sounds: no murmurs and normal S1 and S2 GI Palpation (GI): Soft to palpation, nontender, no hepatomegaly and no splenomegaly Auscultation: normal bowel sounds Skin General skin exam: no rashes or lesions noted and dry skin Neuro General: oriented to person, oriented to place and oriented to time Cranial nerves: Yes Equal, round and reactive pupils present Speech: No Abnormal speech present Gait exam (Neuro): Normal gait present Motor exam (neuro): no tremor noted Extrem Right upper extremity: full ROM Left upper extremity: full ROM Right lower extremity: full ROM; no edema Left lower extremity: full ROM; no edema Psych Mental Status: mental status grossly normal Speech and movement: Normal speech and movement present Affect: normal affect Attitude: cooperative Thought process: Normal thought process present Coding Level of Care Code Est Pt Level 4 (41091) Diagnoses Tick bite of abdominal wall, sequela S30.861S; W57.XXXS Encounter type: sequela Site of tick bite: abdominal wall Hypothyroidism, unspecified type E03.9 Hypothyroidism type: unspecified Attention or concentration deficit R41.840 Attention deficit type: attention or concentration deficit Assessment & Plan Assessment & Plan (1) Tick bite: Code(s): W57.XXXA - Bitten or stung by nonvenomous insect and other nonvenomous arthropods, initial encounter Category: Medical Qualifiers: Encounter type: sequela Site of tick bite: abdominal wall Qualified Code(s): S30.861S - Insect bite (nonvenomous) of abdominal wall, sequela; W57.XXXS - Bitten or stung by nonvenomous insect and other nonvenomous arthropods, sequela Plan: Patient bit my take many weeks ago, did get a prophylactic dose of doxycycline at the time though unclear if he had to take on him for more than 72 hours. He is interested in getting Lyme testing as a precaution. (2) Hypothyroidism: Code(s): E03.9 - Hypothyroidism, unspecified Category: Medical Qualifiers: Hypothyroidism type: unspecified Qualified Code(s): E03.9 - Hypothyroidism, unspecified Plan: Patient has a history of a total thyroidectomy. Most recent TSH low at 0.2, advised on reducing his levothyroxine weekly overall dose. Will recheck TSH in 6 weeks. (3) ADD (attention deficit disorder): Code(s): F98.8 - Other specified behavioral and emotional disorders with onset usually occurring in childhood and adolescence Category: Medical Qualifiers: Attention deficit type: attention or concentration deficit Qualified Code(s): R41.840 - Attention and concentration deficit Plan: The patient reported losing the ADD medication and not taking it as prescribed. A new prescription for Strattera was provided to address memory and focus issues. Orders: Orders Lyme IgG/IgM w/reflex to WB 04/16/25 W57.XXXA - Bitten or stung by nonvenomous insect and other nonvenomous arthropods, initial encounter Medications: Refilled ibuprofen 800 mg PO Q8H 90 tabs 1RF E03.9 - Hypothyroidism, unspecified, M25.50 - Pain in unspecified joint atomoxetine (Strattera) 60 mg PO DAILY 30 caps 1RF 30 days R41.840 - Attention and concentration deficit
== END 2025-04-16 14:30 | disposition home or self-care (01) ==
LOC: HO.HMCH 13:56
PROVIDERS: PCP Physician Assistant; Visit Provider Physician Assistant
DX: E03.9 Hypothyroidism, unspecified (principal); R41.840 Attention and concentration deficit; S30.861D Insect bite (nonvenomous) of abdominal wall, subsequent encounter; W57.XXXS Bitten or stung by nonvenomous insect and other nonvenomous arthropods, sequela

== ENCOUNTER → 2025-04-16 13:55 | Outpatient (BNVA) | payer OTHER, SELFPAY | PROVIDERS: PCP Physician Assistant; Visit Provider Physician Assistant | DX: R41.840 Attention and concentration deficit (principal); E03.9 Hypothyroidism, unspecified; S30.861S Insect bite (nonvenomous) of abdominal wall, sequela; W57.XXXS Bitten or stung by nonvenomous insect and other nonvenomous arthropods, sequela; Z79.899 Other long term (current) drug therapy | CPT/HCPCS: 99212 ==

== ENCOUNTER 2025-05-15 08:05 | Outpatient (REF) | payer OTHER, SELFPAY ==
[2025-05-16 09:43] LABS: Lyme Abs Screen <0.90 index
== END 2025-05-15 08:06 | disposition home or self-care (01) ==
LOC: HO.LAB 08:05
PROVIDERS: PCP Physician Assistant; Visit Provider Physician Assistant
DX: E03.9 Hypothyroidism, unspecified (principal); T14.8XXA Other injury of unspecified body region, initial encounter; W57.XXXA Bitten or stung by nonvenomous insect and other nonvenomous arthropods, initial encounter; Y93.9 Activity, unspecified; Y92.9 Unspecified place or not applicable; Y99.9 Unspecified external cause status
CPT/HCPCS: 36415; 84443; 86617; 86618

== ENCOUNTER 2025-06-19 12:56 | Outpatient (AMB) | payer OTHER, SELFPAY ==
--- NOTE | 2025-06-19 13:03 | MHC.PC.OV ---
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 Required: No Senior Oracle Dba: Not Required per policy Accompanied by: Self / Same As Patient Allergies atomoxetine (From Strattera) Adverse Reaction (Unknown, Verified 06/19/25 13:17) Jiddery SEASONAL ALLERGIES Allergy (Mild, Uncoded 06/19/25 13:11) RUNNY NOSE, ITCHY EYES Medication List - Last Reconciled 06/19/25 by David Riddle PA-C ibuprofen 800 mg PO Q8H levothyroxine 150 mcg PO DAILY 90 days Tobacco use date assessed: 06/19/25 Dental Screening Dental Screen Date: 04/16/25 HPI 8 week follow up HPI Details The patient is a 55-year-old male presenting with follow-up on Attention Deficit Disorder (ADD) medication and management of hypothyroidism. ADD: Patient has tried Strattera though had side effect. He reported that the previous medication made him feel jittery, leading to its discontinuation after a week. He experiences short-term memory issues, often forgetting where he places tools, which concerns him. PLAN: Will trial Wellbutrin 100 SR for his attention and focus Hypothyroidism: The patient also has a history of thyroid dysfunction. He was advised to skip the medication on Sundays, but due to lack of clarity, he resumed taking it daily. The current plan is to adjust the dose to 137 mcg daily. . 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 Current occupational exposures/hazards: No Cognitive needs: No Hearing needs: No Vision needs: No Questionnaire Thrive Questionnaire Date Thrive assessed: 03/15/25 I am a: Patient What is your living situation today?: I do not have a steady places to live I am staying at a intermediate Within the past 12 months, did the food you bought not last and you didn't have the money to get more?: Never true Within the past 12 months, did you worry whether your food would run out before you got money to buy more?: Never true Do you have trouble paying for medicines?: I choose not to answer this question Do you have trouble getting transportation to medical appointments?: No Do you have trouble paying your heating and electricity bill?: I choose not to answer this question Do you have trouble taking care of your child, family member or friend?: I choose not to answer this question Do you have trouble with day-to-day activities such as bathing, preparing meals, shopping, managing finances, etc.?: I choose not to answer this question Are you currently unemployed and looking for a job?: I choose not to answer this question Are you interested in more education?: I choose not to answer this question Please select the resources that you would like help with: None Currently or been in a relationship where the following occur: No concerns reported THRIVE Score: 1 RUTH-7 AMB Questionnaire RUTH-7 Date RUTH - 7 assessed: 03/15/25 Source: Developed by Drs. Daniel Salgado, Brandi Sheffield, Hayden Jiménez and colleagues, with an educational jose from [employer]. Review of Systems Const Denies headache(s) Eyes Denies loss of vision ENT Denies vertigo, Denies dizziness, Denies headache(s) and Denies sore throat Card Denies chest pain, Denies leg edema and Denies lightheadedness Resp Denies cough, Denies hemoptysis and Denies wheezing GI Denies abdominal pain, Denies melena, Denies constipation, Denies diarrhea and Denies vomiting Denies dysuria, Denies urinary frequency and Denies urinary urgency Musc Denies arthralgias, Denies joint swelling, Denies numbness and Denies tingling Neuro Denies Abnormal speech present, Denies behavioral changes, Denies vertigo, Denies dizziness, Denies headache(s), Denies loss of vision, Denies memory loss, Denies numbness and Denies tingling Psych Denies anxiety, Denies behavioral changes, Denies depression, Denies memory loss and Denies panic attacks Graham/Lymph Denies easy bleeding and Denies easy bruising Aller/Immun Denies wheezing Physical exam (Primary Care) Vital Signs: Last Vital Signs Temp 97.1 F 06/19/25 13:04 Pulse 88 06/19/25 13:04 BP 126/74 06/19/25 13:04 Pulse Ox 97 06/19/25 13:04 Oxygen Delivery Method Room Air 06/19/25 13:04 BMI result Body Mass Index 23.3 Tobacco/Smoking Status: Tobacco use Status Tobacco use date assessed 06/19/25 06/19/25 13:07 Patient Tobacco Use Status Never used Tobacco 06/19/25 13:07 e-Cigarette/Vaping Use Never Used 06/19/25 13:07 Thrive Assessment: Date of Thrive Assessment Date Thrive assessed 03/15/25 06/19/25 13:07 Currently or been in a relationship where the following occur: No concerns reported Const General: healthy appearing, no acute distress, alert and awake Nutritional Appearance: well nourished Orientation/consciousness: oriented to person, oriented to place and oriented to time HENMT Ears: TM's normal bilaterally General nose exam: Normal nasal mucous membranes and turbinates present Eyes Conjunctivae: conjunctivae normal Sclerae: sclerae normal Pupils: Equal, round and reactive pupils present Neck Neck: Yes no lymphadenopathy and Yes no JVD Thyroid: Thyroid normal Carotids: no bruits Resp Effort & Inspection: normal respiratory effort and not tachypneic Auscultation: no crackles, no rales, no rhonchi and no wheezes Cardio Rate: regular rate Rhythm: regular rhythm Heart sounds: no murmurs and normal S1 and S2 GI Palpation (GI): Soft to palpation, nontender, no hepatomegaly and no splenomegaly Auscultation: normal bowel sounds Skin General skin exam: no rashes or lesions noted and dry skin Neuro General: oriented to person, oriented to place and oriented to time Cranial nerves: Yes Equal, round and reactive pupils present Speech: No Abnormal speech present Gait exam (Neuro): Normal gait present Motor exam (neuro): no tremor noted Extrem Right upper extremity: full ROM Left upper extremity: full ROM Right lower extremity: full ROM; no edema Left lower extremity: full ROM; no edema Psych Mental Status: mental status grossly normal Speech and movement: Normal speech and movement present Affect: normal affect Attitude: cooperative Thought process: Normal thought process present Coding Level of Care Code Est Pt Level 4 (02532) Diagnoses Attention or concentration deficit R41.840 Attention deficit type: attention or concentration deficit Tobacco dependence due to cigarettes F17.210 Hypothyroidism, unspecified type E03.9 Hypothyroidism type: unspecified Assessment & Plan Assessment & Plan (1) ADD (attention deficit disorder): Code(s): F98.8 - Other specified behavioral and emotional disorders with onset usually occurring in childhood and adolescence Category: Medical Qualifiers: Attention deficit type: attention or concentration deficit Qualified Code(s): R41.840 - Attention and concentration deficit Plan: The patient will start Wellbutrin SR at 100 mg once daily in the morning to address attention and focus issues. The medication will be trialed for a few weeks to assess efficacy and tolerability. (2) Tobacco dependence due to cigarettes: Code(s): F17.210 - Nicotine dependence, cigarettes, uncomplicated Category: Medical Plan: Patient interested nicotine replacement (3) Hypothyroidism: Code(s): E03.9 - Hypothyroidism, unspecified Category: Medical Qualifiers: Hypothyroidism type: unspecified Qualified Code(s): E03.9 - Hypothyroidism, unspecified Plan: The patient's levothyroxine dose will be adjusted to 137 mcg daily, taken on an empty stomach. Thyroid function will be re-evaluated in eight weeks to monitor response to the adjusted dose. Medications: New levothyroxine 137 mcg PO DAILY 90 caps 1RF 90 days E03.9 - Hypothyroidism, unspecified bupropion HCl SR (Wellbutrin SR) 100 mg PO DAILY 30 tabs 1RF 30 days R41.840 - Attention and concentration deficit nicotine (polacrilex) 2 mg buccal Q8H PRN 81 ea 0RF nicotine cravings F17.210 - Nicotine dependence, cigarettes, uncomplicated Discontinued levothyroxine Discontinued Reason: Doctor's Order 150 mcg PO DAILY 90 days 90 tabs 1RF E03.9 - Hypothyroidism, unspecified
[2025-06-19 13:04] VITALS: BP 126/74; PULSE 88; TEMP 36.2; O2SAT 97; BMI 23.3
== END 2025-06-19 13:31 | disposition home or self-care (01) ==
LOC: HO.HMCH 12:57
PROVIDERS: PCP Physician Assistant; Visit Provider Physician Assistant
DX: R41.840 Attention and concentration deficit (principal); F17.210 Nicotine dependence, cigarettes, uncomplicated; E03.9 Hypothyroidism, unspecified

== ENCOUNTER → 2025-06-19 12:56 | Outpatient (BNVA) | payer OTHER, SELFPAY | PROVIDERS: PCP Physician Assistant; Visit Provider Physician Assistant | DX: R41.840 Attention and concentration deficit (principal); E03.9 Hypothyroidism, unspecified; F17.210 Nicotine dependence, cigarettes, uncomplicated | CPT/HCPCS: 99212 ==

== ENCOUNTER 2025-08-21 09:21 | Outpatient (AMB) | payer OTHER, SELFPAY ==
--- NOTE | 2025-08-21 09:30 | MHC.PC.OV ---
Vital Signs 08/21/25 09:42 Height 5 ft 11 in Weight 171 lb 2 oz BMI 23.9 BP 130/70 Blood Pressure Location Lt brachial Position Sitting Pulse 74 Pulse Source Pulse Oximeter Temp 97.1 F Temp Source Temporal Artery Scan Pulse Oximetry (%) 96 Oxygen Delivery Method Room Air Intake Visit Reasons: 8 WEEK FOLLOW UP Intake Note: Patient is here to follow up on ADD, Hypothyroidism. 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 And Assembler: Not Required per policy Accompanied by: Self / Same As Patient Allergies atomoxetine (From Strattera) Adverse Reaction (Unknown, Verified 08/21/25 10:04) Jiddery SEASONAL ALLERGIES Allergy (Mild, Uncoded 08/21/25 10:04) RUNNY NOSE, ITCHY EYES Medication List - Last Reconciled 08/21/25 by David Riddle PA-C bupropion HCl SR (Wellbutrin SR) 100 mg PO DAILY 30 days ibuprofen 800 mg PO Q8H levothyroxine 137 mcg PO DAILY 90 days montelukast (Singulair) 10 mg PO DAILY Tobacco use date assessed: 08/21/25 Dental Screening Dental Screen Date: 04/16/25 HPI 8 WEEK FOLLOW UP HPI Details The patient is a 55-year-old male presenting with follow-up on Attention Deficit Disorder (ADD) medication and management of hypothyroidism. ADD: Patient has tried Strattera though had side effect. Patient has been prescribed Wellbutrin though he has not started this medication yet. Has tried nicotine for his attention though was not effective. Memory impairment: He reports worsening memory, feeling scatterbrained, misplacing items, and is worried about the possibility of early dementia. He notes that while he has never had a great memory, it seems to have worsened recently. He does not have any family history of dementia or Alzheimer's Hypothyroidism: Patient continues on levothyroxine 137 mcg, most recent TSH testing stable. . 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 Current occupational exposures/hazards: No Cognitive needs: No Hearing needs: No Vision needs: No Questionnaire Thrive Questionnaire Date Thrive assessed: 03/15/25 I am a: Patient What is your living situation today?: I do not have a steady places to live I am staying at a halfway Within the past 12 months, did the food you bought not last and you didn't have the money to get more?: Never true Within the past 12 months, did you worry whether your food would run out before you got money to buy more?: Never true Do you have trouble paying for medicines?: I choose not to answer this question Do you have trouble getting transportation to medical appointments?: No Do you have trouble paying your heating and electricity bill?: I choose not to answer this question Do you have trouble taking care of your child, family member or friend?: I choose not to answer this question Do you have trouble with day-to-day activities such as bathing, preparing meals, shopping, managing finances, etc.?: I choose not to answer this question Are you currently unemployed and looking for a job?: I choose not to answer this question Are you interested in more education?: I choose not to answer this question Please select the resources that you would like help with: None Currently or been in a relationship where the following occur: No concerns reported THRIVE Score: 1 RUTH-7 AMB Questionnaire RUTH-7 Date RUTH - 7 assessed: 03/15/25 Source: Developed by Drs. Daniel Salgado, Brandi Sheffield, Hayden Jiménez and colleagues, with an educational jose from [employer]. Review of Systems Const Denies headache(s) Eyes Denies loss of vision ENT Denies vertigo, Denies dizziness, Denies headache(s) and Denies sore throat Card Denies chest pain, Denies leg edema and Denies lightheadedness Resp Denies cough, Denies hemoptysis and Denies wheezing GI Denies abdominal pain, Denies melena, Denies constipation, Denies diarrhea and Denies vomiting Denies dysuria, Denies urinary frequency and Denies urinary urgency Musc Denies arthralgias, Denies joint swelling, Denies numbness and Denies tingling Neuro Denies Abnormal speech present, Denies behavioral changes, Denies vertigo, Denies dizziness, Denies headache(s), Denies loss of vision, Reports memory loss, Denies numbness and Denies tingling Psych Reports anxiety, Denies behavioral changes, Denies depression, Reports difficulty concentrating, Reports memory loss and Denies panic attacks Graham/Lymph Denies easy bleeding and Denies easy bruising Aller/Immun Denies wheezing Physical exam (Primary Care) Vital Signs: Last Vital Signs Temp 97.1 F 08/21/25 09:42 Pulse 74 08/21/25 09:42 BP 130/70 08/21/25 09:42 Pulse Ox 96 08/21/25 09:42 Oxygen Delivery Method Room Air 08/21/25 09:42 BMI result Body Mass Index 23.9 Tobacco/Smoking Status: Tobacco use Status Tobacco use date assessed 08/21/25 08/21/25 09:49 Patient Tobacco Use Status Never used Tobacco 08/21/25 09:30 e-Cigarette/Vaping Use Never Used 08/21/25 09:30 Thrive Assessment: Date of Thrive Assessment Date Thrive assessed 03/15/25 08/21/25 09:30 Currently or been in a relationship where the following occur: No concerns reported Const General: healthy appearing, no acute distress, alert and awake Nutritional Appearance: well nourished Orientation/consciousness: oriented to person, oriented to place and oriented to time HENMT Ears: TM's normal bilaterally General nose exam: Normal nasal mucous membranes and turbinates present Eyes Conjunctivae: conjunctivae normal Sclerae: sclerae normal Pupils: Equal, round and reactive pupils present Neck Neck: Yes no lymphadenopathy and Yes no JVD Thyroid: Thyroid normal Carotids: no bruits Resp Effort & Inspection: normal respiratory effort and not tachypneic Auscultation: no crackles, no rales, no rhonchi and no wheezes Cardio Rate: regular rate Rhythm: regular rhythm Heart sounds: no murmurs and normal S1 and S2 GI Palpation (GI): Soft to palpation, nontender, no hepatomegaly and no splenomegaly Auscultation: normal bowel sounds Skin General skin exam: no rashes or lesions noted and dry skin Neuro General: oriented to person, oriented to place and oriented to time Cranial nerves: Yes Equal, round and reactive pupils present Speech: No Abnormal speech present Gait exam (Neuro): Normal gait present Motor exam (neuro): no tremor noted Extrem Right upper extremity: full ROM Left upper extremity: full ROM Right lower extremity: full ROM; no edema Left lower extremity: full ROM; no edema Psych Mental Status: mental status grossly normal Speech and movement: Normal speech and movement present Affect: normal affect Attitude: cooperative Thought process: Normal thought process present Coding Level of Care Code Est Pt Level 4 (33752) Diagnoses Cognitive decline R41.89 Attention or concentration deficit R41.840 Attention deficit type: attention or concentration deficit Hypothyroidism, unspecified type E03.9 Hypothyroidism type: unspecified Assessment & Plan Assessment & Plan (1) Cognitive decline: Code(s): R41.89 - Other symptoms and signs involving cognitive functions and awareness Category: Medical Plan: For the patient's concern regarding cognitive decline, a referral was considered to a neurologist for further assessment, and an MRI of the brain will be ordered to evaluate for plaques. The possibility that his symptoms are related to attention deficit disorder rather than dementia was discussed. (2) ADD (attention deficit disorder): Code(s): F98.8 - Other specified behavioral and emotional disorders with onset usually occurring in childhood and adolescence Category: Medical Qualifiers: Attention deficit type: attention or concentration deficit Qualified Code(s): R41.840 - Attention and concentration deficit Plan: The patient will start Wellbutrin SR at 100 mg once daily in the morning to address attention and focus issues. The medication will be trialed for a few weeks to assess efficacy and tolerability. (3) Hypothyroidism: Code(s): E03.9 - Hypothyroidism, unspecified Category: Medical Qualifiers: Hypothyroidism type: unspecified Qualified Code(s): E03.9 - Hypothyroidism, unspecified Plan: Patient's most recent TSH testing was normal. Will continue on current dose of levothyroxine Orders: Orders MR head/brain wo con Today R41.89 - Other symptoms and signs involving cognitive functions and awareness Medications: Refilled ibuprofen 800 mg PO Q8H 90 tabs 1RF E03.9 - Hypothyroidism, unspecified, M25.50 - Pain in unspecified joint
[2025-08-21 09:42] VITALS: BP 130/70; PULSE 74; TEMP 36.2; O2SAT 96; BMI 23.9
== END 2025-08-21 10:25 | disposition home or self-care (01) ==
LOC: HO.HMCH 09:22
PROVIDERS: PCP Physician Assistant; Visit Provider Physician Assistant
DX: R41.89 Other symptoms and signs involving cognitive functions and awareness (principal); R41.840 Attention and concentration deficit; E03.9 Hypothyroidism, unspecified

== ENCOUNTER → 2025-08-21 09:21 | Outpatient (BNVA) | payer OTHER, SELFPAY | PROVIDERS: PCP Physician Assistant; Visit Provider Physician Assistant | DX: R41.840 Attention and concentration deficit (principal); E03.9 Hypothyroidism, unspecified; F98.8 Other specified behavioral and emotional disorders with onset usually occurring in childhood and adolescence; R41.89 Other symptoms and signs involving cognitive functions and awareness; M25.50 Pain in unspecified joint | CPT/HCPCS: 99212 ==

== ENCOUNTER → 2025-09-29 10:47 | Outpatient (BNV) | payer OTHER, SELFPAY | PROVIDERS: PCP Physician Assistant; Visit Provider Radiology Diagnostic Radiology | DX: R90.82 White matter disease, unspecified (principal) | CPT/HCPCS: 70551 ==

== ENCOUNTER 2025-09-29 10:49 | Outpatient (REF) | payer OTHER, SELFPAY ==
--- NOTE | ~2025-09-29 | MR_ITS ---
EXAMINATION: MR BRAIN WITHOUT CONTRAST CLINICAL INFORMATION: R 41.89 COMPARISON: None available. TECHNIQUE: MRI of the brain was obtained using routine sequences without contrast. FINDINGS: No restricted diffusion. No acute intracranial hemorrhage, mass effect, midline shift, hydrocephalus or herniation. Sweeney-white matter differentiation is normal. Bilateral, a few, scattered, nonspecific subcortical hyperintense T2 FLAIR signal foci involving centrum semiovale and morocho radiata both hemispheres. Flow-void signal within the main cerebral vessels is normal. Sellar/suprasellar region is normal. Craniocervical junction is intact with normal position of the cerebellar tonsils. No signal abnormality or gross volume loss in the hippocampi. Prominence of the extra-axial CSF spaces cerebral sulci and ventricles likely related to central volume loss. There is a 6 cm lobulated complex mixed intrinsic hyperintense T1 fluid signal characteristic polypoid lesion, right sphenoid sinus. MR/MR head/brain wo con IMPRESSION: No acute brain abnormality. White matter T2 FLAIR signal which could be seen patients with migraines. Complex polypoid lesion right saphenous sinus. Recommend direct inspection. Electronically signed by: Franco Landin MD 10/01/2025 08:12 AM EST
== END 2025-09-29 10:50 | disposition home or self-care (01) ==
LOC: HO.MRI 10:49
PROVIDERS: PCP Physician Assistant; Visit Provider Physician Assistant
DX: R41.89 Other symptoms and signs involving cognitive functions and awareness (principal)
CPT/HCPCS: 70551

== ENCOUNTER 2025-10-02 09:23 | Outpatient (AMB) | payer OTHER, SELFPAY ==
--- NOTE | 2025-10-02 09:32 | A.OFFPC_ITS ---
Vital Signs 10/02/25 09:33 Height 5 ft 11 in Weight 170 lb 8 oz BMI 23.8 BP 130/62 Blood Pressure Location Lt brachial Position Sitting Pulse 78 Pulse Source Pulse Oximeter Temp 97.3 F Temp Source Temporal Artery Scan Pulse Oximetry (%) 96 Oxygen Delivery Method Room Air Intake Visit Reasons: f/u ADD med ( okay to schedule on admin time) Intake Note: Patient is here to follow up on ADD. 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 Operator: Not Required per policy Accompanied by: Self / Same As Patient Allergies atomoxetine (From Strattera) Adverse Reaction (Unknown, Verified 10/02/25 09:33) J[place]dery SEASONAL ALLERGIES Allergy (Mild, Uncoded 10/02/25 09:33) RUNNY NOSE, ITCHY EYES Medication List - Last Reconciled 10/02/25 by David Riddle PA-C bupropion HCl SR (Wellbutrin SR) 100 mg PO DAILY 30 days ibuprofen 800 mg PO Q8H levothyroxine 137 mcg PO DAILY 90 days montelukast (Singulair) 10 mg PO DAILY Tobacco use date assessed: 10/02/25 Dental Screening Dental Screen Date: 04/16/25 HPI f/u ADD med ( okay to schedule on admin time) HPI Details The patient is a 55-year-old male presenting with follow-up on Attention Deficit Disorder (ADD) medication and management of hypothyroidism. ADD: Regarding his memory, prior trials of non-stimulant medications for possible ADD, including Strattera, nicotine and Wellbutrin, were not effective. His TSH is within the normal range on his current dose of levothyroxine 125 mcg, which was reduced from 150 mcg. He underwent a thyroidectomy 15 years ago PLAN: Will trial stimulant ADD medication to see if it will help him with his attention and focus .. Chronic back/ ? Postnasal drip: The patient has a chronic history of gagging on mucus, which has been ongoing for years and seems to be triggered by eating or drinking, particularly in the morning. Episodes were previously severe enough to cause a choking sensation and fear of passing out, but have somewhat improved. He reports that trials of Singulair and nasal sprays were not effective. Past swallow tests were performed for his throat, but he has not had specific testing for his sinuses. He underwent a septoplasty about 12-15 years ago for a deviated septum. The brain MRI incidentally found complex polypoid lesions in the right sphenoid sinus. Memory impairment: He reports worsening memory, feeling scatterbrained, misplacing items, and is worried about the possibility of early dementia. He notes that while he has never had a great memory, it seems to have worsened recently. Brain MRI done last week showing-- > No acute brain abnormality. White matter T2 FLAIR signal which could be seen patients with migraines. Complex polypoid lesion right saphenous sinus. Recommend direct inspection. He does not have any family history of dementia or Alzheimer's. Hypothyroidism: Patient continues on levothyroxine 137 mcg, most recent TSH testing stable. 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 Current occupational exposures/hazards: No Cognitive needs: No Hearing needs: No Vision needs: No Questionnaire Thrive Questionnaire Date Thrive assessed: 03/15/25 I am a: Patient What is your living situation today?: I do not have a steady places to live I am staying at a halfway Within the past 12 months, did the food you bought not last and you didn't have the money to get more?: Never true Within the past 12 months, did you worry whether your food would run out before you got money to buy more?: Never true Do you have trouble paying for medicines?: I choose not to answer this question Do you have trouble getting transportation to medical appointments?: No Do you have trouble paying your heating and electricity bill?: I choose not to answer this question Do you have trouble taking care of your child, family member or friend?: I choose not to answer this question Do you have trouble with day-to-day activities such as bathing, preparing meals, shopping, managing finances, etc.?: I choose not to answer this question Are you currently unemployed and looking for a job?: I choose not to answer this question Are you interested in more education?: I choose not to answer this question Please select the resources that you would like help with: None Currently or been in a relationship where the following occur: No concerns reported THRIVE Score: 1 RUTH-7 AMB Questionnaire RUTH-7 Date RUTH - 7 assessed: 03/15/25 Source: Developed by Drs. Daniel Salgado, Brandi Sheffield, Hayden Jiménez and colleagues, with an educational jose from [employer]. Review of Systems Const Denies headache(s) Eyes Denies loss of vision ENT Denies vertigo, Denies dizziness, Denies headache(s) and Denies sore throat Card Denies chest pain, Denies leg edema and Denies lightheadedness Resp Denies cough, Denies hemoptysis and Denies wheezing GI Denies abdominal pain, Denies melena, Denies constipation, Denies diarrhea and Denies vomiting Denies dysuria, Denies urinary frequency and Denies urinary urgency Musc Denies arthralgias, Denies joint swelling, Denies numbness and Denies tingling Neuro Denies Abnormal speech present, Denies behavioral changes, Denies vertigo, Denies dizziness, Denies headache(s), Denies loss of vision, Denies memory loss, Denies numbness and Denies tingling Psych Denies anxiety, Denies behavioral changes, Denies depression, Denies memory loss and Denies panic attacks Graham/Lymph Denies easy bleeding and Denies easy bruising Aller/Immun Denies wheezing Physical exam (Primary Care) Vital Signs: Last Vital Signs Temp 97.3 F 10/02/25 09:33 Pulse 78 10/02/25 09:33 BP 130/62 10/02/25 09:33 Pulse Ox 96 10/02/25 09:33 Oxygen Delivery Method Room Air 10/02/25 09:33 BMI result Body Mass Index 23.8 Tobacco/Smoking Status: Tobacco use Status Tobacco use date assessed 10/02/25 10/02/25 09:36 Patient Tobacco Use Status Never used Tobacco 10/02/25 09:36 e-Cigarette/Vaping Use Never Used 10/02/25 09:36 Thrive Assessment: Date of Thrive Assessment Date Thrive assessed 03/15/25 10/02/25 09:36 Currently or been in a relationship where the following occur: No concerns reported Const General: healthy appearing, no acute distress, alert and awake Nutritional Appearance: well nourished Orientation/consciousness: oriented to person, oriented to place and oriented to time HENMT Ears: TM's normal bilaterally General nose exam: Normal nasal mucous membranes and turbinates present Eyes Conjunctivae: conjunctivae normal Sclerae: sclerae normal Pupils: Equal, round and reactive pupils present Neck Neck: Yes no lymphadenopathy and Yes no JVD Thyroid: Thyroid normal Carotids: no bruits Resp Effort & Inspection: normal respiratory effort and not tachypneic Auscultation: no crackles, no rales, no rhonchi and no wheezes Cardio Rate: regular rate Rhythm: regular rhythm Heart sounds: no murmurs and normal S1 and S2 GI Palpation (GI): Soft to palpation, nontender, no hepatomegaly and no splenomegaly Auscultation: normal bowel sounds Skin General skin exam: no rashes or lesions noted and dry skin Neuro General: oriented to person, oriented to place and oriented to time Cranial nerves: Yes Equal, round and reactive pupils present Speech: No Abnormal speech present Gait exam (Neuro): Normal gait present Motor exam (neuro): no tremor noted Extrem Right upper extremity: full ROM Left upper extremity: full ROM Right lower extremity: full ROM; no edema Left lower extremity: full ROM; no edema Psych Mental Status: mental status grossly normal Speech and movement: Normal speech and movement present Affect: normal affect Attitude: cooperative Thought process: Normal thought process present Coding Level of Care Code Est Pt Level 4 (50208) Diagnoses Post-nasal drainage R09.82 Attention or concentration deficit R41.840 Attention deficit type: attention or concentration deficit Hypothyroidism, unspecified type E03.9 Hypothyroidism type: unspecified Assessment & Plan Assessment & Plan (1) Post-nasal drainage: Code(s): R09.82 - Postnasal drip Category: Medical Plan: For the chronic postnasal drip and gagging, which may be related to the incidental finding of complex polypoid lesions in the right sphenoid sinus on the brain MRI, a referral will be placed to an ENT specialist for direct inspection and further evaluation. In the interim, Mucinex (guaifenesin) will be prescribed to be taken as needed to help thin mucus secretions. (2) ADD (attention deficit disorder): Code(s): F98.8 - Other specified behavioral and emotional disorders with onset usually occurring in childhood and adolescence Category: Medical Qualifiers: Attention deficit type: attention or concentration deficit Qualified Code(s): R41.840 - Attention and concentration deficit Plan: Given that previous trials of non-stimulant medications for attention deficit disorder (ADD) like Strattera and Wellbutrin were unsuccessful, a trial of a stimulant medication will be initiated. A 10-day supply of methylphenidate will be prescribed to be taken in the morning to assess for improved focus and clarity. The patient will monitor for effects and side effects, and if it is effective, he will call for a refill. (3) Hypothyroidism: Code(s): E03.9 - Hypothyroidism, unspecified Category: Medical Qualifiers: Hypothyroidism type: unspecified Qualified Code(s): E03.9 - Hypothyroidism, unspecified Plan: Patient's most recent TSH testing was normal. 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 36 mg PO DAILY 10 tabs 0RF 10 days R41.840 - Attention and concentration deficit Discontinued bupropion HCl SR (Wellbutrin SR) Discontinued Reason: Doctor's Order 100 mg PO DAILY 30 days 30 tabs 1RF R41.840 - Attention and concentration deficit
[2025-10-02 09:33] VITALS: BP 130/62; PULSE 78; TEMP 36.3; O2SAT 96; BMI 23.8
== END 2025-10-02 10:14 | disposition home or self-care (01) ==
LOC: HO.HMCH 09:24
PROVIDERS: PCP Physician Assistant; Visit Provider Physician Assistant
DX: R09.82 Postnasal drip (principal); R41.840 Attention and concentration deficit; E03.9 Hypothyroidism, unspecified

== ENCOUNTER → 2025-10-02 09:23 | Outpatient (BNVA) | payer OTHER, SELFPAY | PROVIDERS: PCP Physician Assistant; Visit Provider Physician Assistant | DX: F41.1 Generalized anxiety disorder (principal); E03.9 Hypothyroidism, unspecified; R09.82 Postnasal drip; R41.840 Attention and concentration deficit | CPT/HCPCS: 99212 ==